=== PATIENT | female | born 1970 | race Caucasian/White ===

== ENCOUNTER 2017-06-20 16:48 | Inpatient (IN) | payer MEDICARE, MEDICAID, SELFPAY ==
[~2017-06-20] VITALS: Ht 149.9 cm; Wt 158.3 kg
[~2017-06-20 16:48] MED LIST: ACETAMINOPHEN325 M1 PO; AMBIEN 10 MG TA10 MG PO; ATENOLOL 25 MG25 M1 PO; ATENOLOL 50 MG50 M1 PO; ATIVAN0.5 MG PO; ATIVAN1 MG PO; AUGMENTIN 875875 M1 PO; AUGMENTIN 875875 MG PO; BACTROBAN22 GM TP; CARBAMAZEPINE200 M5 PO; CARBAMAZEPINE400 M1 PO; CLINDAMYCIN PO; CLONAZEPAM 0.50.5 M1 PO; DEPAKOTE ER500 MG PO; DESYREL300 MG PO; DOXYCYCLINE 10100 M1 PO; DOXYCYCLINE 10100 MG PO; EPITOL200 MG PO; FUROSEMIDE 20 M20 M1 PO; HYDROCODON-ACE1 EAC7 PO; HYDROCODONE-AP1 EAC6 PO; KEFLEX500 MG PO; LAMISIL15 GM; LASIX 20 MG TAB20 MG PO; LORTAB 5-500 T1 EAC1 PO; MICONAZOLE NITR45 G1 TP; MINOCIN100 MG PO; MOBIC7.5 M1 PO; MOTION RELIEF25 MG PO; NEURONTIN 300300 M1 PO; NORCO 5-325 TA1 EACH PO; NYSTATIN15 GM TOP; OCEAN; PREDNISONE 10 M10 M1 PO; PROTONIX40 M2 PO; RESPERAL IM; RISPERDAL12.5 MG/2 IM; ROBITUSSIN15 MG/5 M1 PO; SEROQUEL200 MG PO; SERTRALINE HCL50 MG PO; SIMVASTATIN40 MG PO; TRAMADOL 50 MG50 MG PO; TRANSPORT CHAI1 EACH MC; TRAZODONE 150150 M1 PO; TRIAMCINOLONE; TRIAMCINOLONE A80 G2 TOP; VISTARIL 25 MG25 M1 PO; ZOFRAN 4 MG ORAL4 MG PO; ZOLOFT25 MG PO; ZOLOFT50 MG PO; [UNRECOGNIZED DRUG - OTHER] PO
[2017-06-20 16:49] VITALS: BP 131/91
[2017-06-20 17:27] LABS: HEMATOCRIT 39.8 % (37.0-47.0); HEMOGLOBIN 12.9 gm/dL (12.0-15.0); MCH 29.8 pg (26.0-34.0); MCHC 32.3 g/dL (28.0-37.0); MCV 92.2 fL (80.0-100.0); MPV 7.4 fl. (7.2-11.1); NUCLEATED RBCS 0 /100WBC; PLATELET COUNT* 162 thou/uL (150-400); RBC 4.31 mil/uL (4.20-5.00); RDW-CV 16.2 % (10.5-14.5); WBC 6.9 thou/uL (4.0-11.0)
[2017-06-20 17:32] LABS: ANION GAP 4 mmol/L (7-16); BUN 13 mg/dL (7-18); CALCIUM 8.6 mg/dL (8.5-10.1); CHLORIDE 98 mmol/L (98-107); CO2 33 mmol/L (21-32); CREATININE 0.8 mg/dL (0.6-1.3); GLUCOSE 121 mg/dL (70-99); POTASSIUM 4.1 mmol/L (3.5-5.1); SODIUM 135 mmol/L (136-145)
[2017-06-20 17:43] LABS: ALBUMIN 3.2 g/dL (3.4-5.0); ALKALINE PHOSPHATASE 61 U/L (46-116); NT-PRO BRAIN NAT PEPTIDE 658 pg/mL (<300); SGOT 12 U/L (15-37); SGPT 12 U/L (30-65); TOTAL BILIRUBIN 0.3 mg/dL (<0.1-1.0); TROPONIN-I LEVEL <0.06 ng/mL (<0.06)
[2017-06-20 17:48] LABS: INFLUENZA A ANTIGEN None Detected (None Detect); INFLUENZA B ANTIGEN None Detected (None Detect)
[2017-06-20 17:56] LABS: ABSOLUTE LYMPHOCYTES 0.3 thou/uL (0.8-5.3); ABSOLUTE MONOCYTES 0.6 thou/uL (0.0-1.2); ABSOLUTE NEUTROPHILS 5.9 thou/uL (1.6-8.1); PLATELET ESTIMATE ADEQUATE
[2017-06-20] MEDS ORDERED: FLONASE 0.05%50 MCG NASAL (18:16)
[2017-06-20] MEDS ORDERED: KLOR-CON 1010 MEQ PO (18:17)
[2017-06-20] MEDS ORDERED: DIFLUCAN150 MG PO (18:18)
[2017-06-20] MEDS ORDERED: AMBIEN 5 MG TABL5 M1 PO (18:19)
[2017-06-20] MEDS ORDERED: KETOCONAZOLE15 GM TOP (18:20)
[2017-06-20] MEDS ORDERED: MAGOX 400400 MG PO (18:21)
[2017-06-20] MEDS ORDERED: BENADRYL25 MG PO (18:22)
[2017-06-20] MEDS ORDERED: CLONAZEPAM 0.50.5 M1 PO (18:23)
[2017-06-20 19:41] VITALS: BP 110/55
[2017-06-20 21:00] VITALS: BP 112/62
[2017-06-21 04:51] LABS: ABSOLUTE LYMPHOCYTES 0.4 thou/uL (0.8-5.3); ABSOLUTE MONOCYTES 0.8 thou/uL (0.0-1.2); ABSOLUTE NEUTROPHILS 4.6 thou/uL (1.6-8.1); BASOPHILS 0.3 %; HEMATOCRIT 38.7 % (37.0-47.0); HEMOGLOBIN 12.7 gm/dL (12.0-15.0); LYMPHOCYTES 7.4 %; MCH 30.3 pg (26.0-34.0); MCHC 32.8 g/dL (28.0-37.0); MCV 92.1 fL (80.0-100.0); MONOCYTES 13.5 %; MPV 7.5 fl. (7.2-11.1); NUCLEATED RBCS 0 /100WBC; PLATELET COUNT* 156 thou/uL (150-400); POLYS 78.8 %; RDW-CV 16.1 % (10.5-14.5); WBC 5.8 thou/uL (4.0-11.0)
[2017-06-21 04:58] LABS: CALCIUM 8.3 mg/dL (8.5-10.1); CREATININE 0.8 mg/dL (0.6-1.3); POTASSIUM 4.7 mmol/L (3.5-5.1)
--- NOTE | 2017-06-21 10:28 | EKG ---
[place] [address] ELECTROCARDIOGRAM REPORT Name: PAUL YOO Room: [address] ADM IN M.R.#: [id number] Admission: 06/20/17 Attend Phys: Lisa Nicolas Discharge: Date of : 72 Report #: [id number] THIS REPORT FOR: //name// [facility] ED Test Date: 2017-06-20 Test Time: 17:10:03 Pat Name: PAUL YOO Department: Room: [facility] Gender: F Chick Sexer: Elizabeth BANGURA : 1970 Requested By: Rob Polanco Order Number: [id number] MD: Rachid Harper Measurements Intervals Lemitar Rate: 93 P: 45 OR: 209 QRS: 63 QRSD: 109 T: 31 QT: 334 QTc: 416 Interpretive Statements Sinus rhythm Prolonged OR interval Biatrial enlargement Low voltage, precordial leads Borderline T wave abnormalities Compared to ECG 06/27/2014 23:12:32 ST (T wave) deviation now present Sinus tachycardia no longer present Electronically Signed On 06-21-2017 10:28:07 PLANNING COORDINATOR by Rachid Harper [email or web address] <ELECTRONICALLY SIGNED> By: Rachid Harper MD, [facility] 06/21/17 1028 1710 1710 Rachid Harper MD, [facility] /EPI
[2017-06-21 15:45] VITALS: BP 130/61
[2017-06-22 04:42] LABS: ABSOLUTE LYMPHOCYTES 0.9 thou/uL (0.8-5.3); ABSOLUTE MONOCYTES 1.1 thou/uL (0.0-1.2); ABSOLUTE NEUTROPHILS 5.4 thou/uL (1.6-8.1); BASOPHILS 0.4 %; EOSINOPHILS 0.2 %; HEMATOCRIT 41.4 % (37.0-47.0); HEMOGLOBIN 13.4 gm/dL (12.0-15.0); LYMPHOCYTES 12.1 %; MCHC 32.5 g/dL (28.0-37.0); MCV 92.4 fL (80.0-100.0); MONOCYTES 14.2 %; MPV 8.3 fl. (7.2-11.1); NUCLEATED RBCS 0 /100WBC; POLYS 73.1 %; RBC 4.48 mil/uL (4.20-5.00); RDW-CV 16.7 % (10.5-14.5); WBC 7.4 thou/uL (4.0-11.0)
[2017-06-22 04:51] LABS: CALCIUM 8.4 mg/dL (8.5-10.1); CREATININE 0.8 mg/dL (0.6-1.3); POTASSIUM 4.6 mmol/L (3.5-5.1)
[2017-06-22 06:30] LABS: PLATELET ESTIMATE DECREASED
[2017-06-22 06:31] LABS: ANISOCYTOSIS 1+; LARGE PLATELETS RARE; PLATELET COUNT* 137 thou/uL (150-400); POIKILOCYTOSIS 1+
[2017-06-22 16:00] VITALS: BP 137/67
[2017-06-22 19:45] VITALS: BP 106/52
[2017-06-23 08:59] LABS: BE 7.4 mmol/L (-2 to +3); HCO3 37.6 mmol/L (22.0-26.0); PO2 73.7 mmHg (75.0-100.0)
[2017-06-23 09:01] LABS: PCO2 86.8 mmHg (35.0-45.0); pH 7.255 (7.340-7.450)
[2017-06-23 10:54] LABS: BE 7.2 mmol/L (-2 to +3); HCO3 38.5 mmol/L (22.0-26.0); PO2 72.8 mmHg (75.0-100.0)
[2017-06-23 10:55] LABS: pH 7.212 (7.340-7.450)
[2017-06-23 11:16] VITALS: BP 110/51
[2017-06-23 13:14] LABS: BE 8.1 mmol/L (-2 to +3); HCO3 37.8 mmol/L (22.0-26.0); PO2 84.3 mmHg (75.0-100.0)
[2017-06-23 13:22] LABS: pH 7.287 (7.340-7.450)
[2017-06-23 13:23] LABS: PCO2 80.9 mmHg (35.0-45.0)
[2017-06-23 14:05] VITALS: BP 109/59
[2017-06-23 16:00] VITALS: BP 119/59
[2017-06-23 17:55] LABS: BE 5.8 mmol/L (-2 to +3); HCO3 34.9 mmol/L (22.0-26.0); PO2 81.9 mmHg (75.0-100.0)
[2017-06-23 17:56] LABS: PCO2 75.2 mmHg (35.0-45.0); pH 7.285 (7.340-7.450)
[2017-06-23 20:00] VITALS: BP 105/54
[2017-06-23 22:00] VITALS: BP 101/53
[2017-06-24] VITALS (13 sets, daily range): BP systolic 111–135; BP diastolic 58–78
[2017-06-24 06:06] LABS: BE 8.5 mmol/L (-2 to +3); HCO3 37.8 mmol/L (22.0-26.0); PO2 92.1 mmHg (75.0-100.0); pH 7.304 (7.340-7.450)
[2017-06-24 06:10] LABS: PCO2 77.9 mmHg (35.0-45.0)
[2017-06-25] VITALS (8 sets, daily range): BP systolic 113–135; BP diastolic 54–99
[2017-06-25 03:48] LABS: BE 14.3 mmol/L (-2 to +3); PO2 86.4 mmHg (75.0-100.0)
[2017-06-25 03:50] LABS: HCO3 43.8 mmol/L (22.0-26.0); PCO2 81.1 mmHg (35.0-45.0)
[2017-06-25 05:26] LABS: HEMATOCRIT 37.2 % (37.0-47.0); HEMOGLOBIN 12.2 gm/dL (12.0-15.0); MCH 30.1 pg (26.0-34.0); MCHC 32.8 g/dL (28.0-37.0); MCV 91.7 fL (80.0-100.0); MPV 7.5 fl. (7.2-11.1); RBC 4.05 mil/uL (4.20-5.00); RDW-CV 15.7 % (10.5-14.5); WBC 5.4 thou/uL (4.0-11.0)
[2017-06-25 05:46] LABS: ALBUMIN 2.8 g/dL (3.4-5.0); ALKALINE PHOSPHATASE 42 U/L (46-116); ANION GAP < 0 mmol/L (7-16); BUN 16 mg/dL (7-18); CALCIUM 7.6 mg/dL (8.5-10.1); CHLORIDE 100 mmol/L (98-107); CO2 41 mmol/L (21-32); CREATININE 0.7 mg/dL (0.6-1.3); GLUCOSE 117 mg/dL (70-99); MAGNESIUM 1.6 mg/dL (1.8-2.4); POTASSIUM 3.8 mmol/L (3.5-5.1); SGOT 15 U/L (15-37); SGPT 12 U/L (30-65); SODIUM 140 mmol/L (136-145); TOTAL BILIRUBIN 0.3 mg/dL (<0.1-1.0); TOTAL PROTEIN 7.2 g/dL (6.4-8.2)
--- NOTE | 2017-06-25 09:13 | CON ---
[address] [address] CONSULTATION Name: PAUL YOO Room: [address] IN M.R.#: [id number] Admission: 06/20/17 Attend Phys: Shira Casey MD Discharge: Date of : 72 Report #: [id number] THIS REPORT FOR: //name// CC: Rachid Casey REASON FOR THE CONSULT: Acute hypercapnic respiratory failure, worsening ABGs. HISTORY OF PRESENT ILLNESS: The patient is a 46-year-old female patient, morbidly obese, admitted to the hospital on 06/20/2017 with the chief complaint of shortness of breath of 2 days' duration. The patient reported that she had cough and feeling congested in her chest with sore throat and rhinorrhea. She told me she does not have lung disease. She never had a CPAP or BiPAP in the past, although she said she had a sleep study in the past and she was told she does not have it. She does not carry a lung disease or any oxygen or inhalers at home. As an outpatient, she was given Z-Remy couple of days prior to hospitalization that they did not feel any improvement. She had fever and feeling congested. During this hospitalization, she had multiple sets of ABGs, showed hypercapnic respiratory failure, although patient was trialed on BiPAP and her ABGs got worse and she was transferred to the ICU. When I saw the patient, she was on 50% Ventimask. She is awake and alert. Her pH is 7.3 and pCO2 was 77. This was done on the Ventimask. She denied any compliance. She denied any lower extremity edema, although she had significant lymphedema in the lower extremities. ALLERGIES: SULFA, MORPHINE AND CODEINE. PAST MEDICAL AND SURGICAL HISTORY: Includes seizure disorder, hypertension, hyperlipidemia, bipolar disorder, panic attacks and anxiety. She had a history of tonsillectomy, eye surgery, lymphedema, history of DVT, cellulitis and clot in the arm from a PICC line 1 year ago. She has history of bladder infection and incision and drainage of the right foot. SOCIAL HISTORY: Does not smoke. Does not drink alcohol. Does not abuse drugs. HOME MEDICATIONS: She is on simvastatin, hydrocodone, sertraline, Lasix, fluticasone and atenolol. REVIEW OF SYSTEMS: She denied any fever, chills, headache or nasal discharge at this point. She denied nausea or vomiting, dysuria, frequency or urgency. She is not sure if she had lower extremity edema. She had no focal weakness. The rest of the review of systems was negative. PHYSICAL EXAMINATION: VITAL SIGNS: On examination, she is on 50% Ventimask with saturation more than [facility] [address] [place] [address] CONSULTATION Name: PAUL YOO Room: [address] IN .R.#: [id number] Admission: 06/20/17 Attend Phys: Shira Casey MD Discharge: Date of : 72 Report #: [id number] 90%. Her blood pressure is 118/70, pulse rate of 71 and breathing comfortably at 20 times a minute. GENERAL: Morbidly obese lady, awake, alert and oriented, not in distress. Speaks in full sentences. HEENT: Head, normocephalic and atraumatic. Pupils equal and reactive to light. Oral cavity: Moist mucous membranes with Mallampati of 2-3. No ulcers. NECK: Supple. No palpable lymph node. No palpable thyroid. Trachea is central. CHEST: Diminished air movement bilaterally. Prolonged expiratory phase. I did not appreciate wheezes or crackles. HEART: S1 and S2. No murmurs. No gallop. ABDOMEN: Obese, soft, lax, benign, nontender. No masses felt. EXTREMITIES: Lower extremity, chronic lymphedema bilaterally. Some rash noted down her legs. Possibly some edema with lymphedema noted. NEUROLOGIC: Awake, alert and oriented. Moving 4 extremities spontaneously. Speech normal. LYMPHATICS: No palpable lymph node. SKIN: As mentioned, she has rash on her legs. LABORATORY DATA: ABGs: She had multiple ABGs during hospitalization reviewed. The last ABG 7./ on 50% FiO2. Her creatinine is 0.8. BNP slightly elevated. Potassium 4.6 today. Prealbumin 17.8. Her white blood cell count today 7.4, hemoglobin 13.4 and platelet 137. Previous CBC also reviewed. Her respiratory virus panel for A and B negative and the rapid test. She had also multiple chest x-rays that showed cardiomegaly with signs of vascular congestion bilaterally, possible lower lobe infiltrate. CURRENT MEDICATIONS: She is on steroids, Lovenox. She is on Levaquin. She is on p.o. Lasix. IMPRESSION: 1. Acute respiratory failure, hypoxic and hypercapnic, most likely chronic. 2. Likely obesity hypoventilation syndrome. 3. Pulmonary vascular congestion. 4. Pulmonary infiltrate. I agree with antibiotics. I would recommend more diuresis. I will do Doppler ultrasound of the lower extremities. Continue the BiPAP as tolerated. Potentially, she would need noninvasive ventilation at home with the combination of obesity hypoventilation syndrome, obstructive sleep apnea and respiratory failure. I did recommend for her to have a sleep study as an outpatient. Continue to monitor fluid status, keep her negative fluid balance. Can come off the BiPAP for diet. Wean oxygen as tolerated. We will follow along with you. [address] [address] CONSULTATION Name: PAUL YOO Room: [address] IN .R.#: [id number] Admission: 06/20/17 Attend Phys: Shira Casey MD Discharge: Date of : 72 Report #: [id number] Thank you for the consult. <ELECTRONICALLY SIGNED> By: Tye Martinez MD 06/25/17 0913 0921 [id number] Martinez MD /nt
[2017-06-25 17:37] LABS: URINE BILIRUBIN NEGATIVE (Negative); URINE BLOOD TRACE (Negative); URINE CLARITY CLEAR; URINE COLOR YELLOW; URINE GLUCOSE-RANDOM NEGATIVE (Negative); URINE KETONES NEGATIVE (Negative); URINE LEUKOCYTES-REFLEX NEGATIVE (Negative); URINE NITRITE-REFLEX NEGATIVE (Negative); URINE PROTEIN NEGATIVE (Negative); URINE UROBILINOGEN 0.2 E.U./dl (0.2-1.0)
[2017-06-26] VITALS (7 sets, daily range): BP systolic 113–150; BP diastolic 67–86
[2017-06-26 05:25] LABS: HEMATOCRIT 40.2 % (37.0-47.0); HEMOGLOBIN 13.4 gm/dL (12.0-15.0); MCH 30.3 pg (26.0-34.0); MCHC 33.3 g/dL (28.0-37.0); MPV 7.6 fl. (7.2-11.1); RBC 4.42 mil/uL (4.20-5.00); RDW-CV 15.5 % (10.5-14.5); WBC 6.7 thou/uL (4.0-11.0)
[2017-06-26 05:27] LABS: CALCIUM 8.3 mg/dL (8.5-10.1); CREATININE 0.7 mg/dL (0.6-1.3); POTASSIUM 3.8 mmol/L (3.5-5.1)
[2017-06-27 04:00] VITALS: BP 131/77
[2017-06-27 04:44] LABS: BE 11.1 mmol/L (-2 to +3); PO2 100.9 mmHg (75.0-100.0)
[2017-06-27 04:47] LABS: HCO3 41.5 mmol/L (22.0-26.0); PCO2 86.6 mmHg (35.0-45.0); pH 7.298 (7.340-7.450)
[2017-06-27 05:09] LABS: HEMATOCRIT 41.4 % (37.0-47.0); HEMOGLOBIN 13.3 gm/dL (12.0-15.0); MCH 29.9 pg (26.0-34.0); MCHC 32.1 g/dL (28.0-37.0); MCV 93.1 fL (80.0-100.0); MPV 7.8 fl. (7.2-11.1); RBC 4.44 mil/uL (4.20-5.00); RDW-CV 15.7 % (10.5-14.5); WBC 8.2 thou/uL (4.0-11.0)
[2017-06-27 05:27] LABS: ALBUMIN 2.8 g/dL (3.4-5.0); CALCIUM 8.5 mg/dL (8.5-10.1); CREATININE 0.6 mg/dL (0.6-1.3); MAGNESIUM 2.1 mg/dL (1.8-2.4); POTASSIUM 4.3 mmol/L (3.5-5.1); TOTAL BILIRUBIN 0.3 mg/dL (<0.1-1.0); TOTAL PROTEIN 7.7 g/dL (6.4-8.2)
[2017-06-27 08:30] VITALS: BP 125/66
[2017-06-27 11:57] VITALS: BP 118/64
[2017-06-27 15:57] VITALS: BP 119/67
[2017-06-27 18:16] LABS: BE 7.5 mmol/L (-2 to +3); pH 7.376 (7.340-7.450)
[2017-06-27 18:19] LABS: PCO2 61.1 mmHg (35.0-45.0)
[2017-06-27 19:40] VITALS: BP 129/70
[2017-06-28] VITALS: BP 129/71
[2017-06-28 04:00] VITALS: BP 115/62
[2017-06-28 05:34] LABS: HEMATOCRIT 39.6 % (37.0-47.0); HEMOGLOBIN 12.8 gm/dL (12.0-15.0); MCH 29.9 pg (26.0-34.0); MCHC 32.5 g/dL (28.0-37.0); MPV 7.5 fl. (7.2-11.1); RBC 4.3 mil/uL (4.20-5.00); RDW-CV 15.8 % (10.5-14.5); WBC 10.2 thou/uL (4.0-11.0)
[2017-06-28 05:49] LABS: CALCIUM 8.5 mg/dL (8.5-10.1); CREATININE 0.6 mg/dL (0.6-1.3); POTASSIUM 3.9 mmol/L (3.5-5.1)
[2017-06-28 05:53] LABS: BE 11.3 mmol/L (-2 to +3); HCO3 39.3 mmol/L (22.0-26.0); pH 7.385 (7.340-7.450)
[2017-06-28 05:57] LABS: PCO2 67.2 mmHg (35.0-45.0); PO2 53.4 mmHg (75.0-100.0)
[2017-06-28 08:00] VITALS: BP 144/80
[2017-06-28 16:00] VITALS: BP 148/77
[2017-06-28 20:00] VITALS: BP 128/89
[2017-06-29] VITALS: BP 135/77
[2017-06-29 04:12] VITALS: BP 127/71
[2017-06-29] MEDS ORDERED: PREDNISONE 10 M10 MG PO (09:12)
[2017-06-29] MEDS ORDERED: LEVAQUIN 750 M750 MG PO (09:12)
[2017-06-29] MEDS ORDERED: DUONEB 2.5-0.5 M3 ML INH (09:12)
[2017-06-29] MEDS ORDERED: NEBULIZER MISCELL (09:12)
[2017-06-29 12:24] VITALS: BP 103/57
[2017-06-29 16:00] VITALS: BP 144/77
[2017-06-29 20:00] VITALS: BP 138/85
[2017-06-30 00:18] VITALS: BP 110/56
[2017-06-30 03:59] VITALS: BP 119/64
[2017-06-30 09:32] VITALS: BP 116/53
[2017-06-30 12:08] VITALS: BP 119/58
[2017-06-30 15:30] VITALS: BP 113/61
[2017-06-30 20:00] VITALS: BP 111/57
[2017-07-01 07:15] VITALS: BP 103/46
--- NOTE | 2017-07-01 13:12 | 2DMMODE ---
[place] [address] 2 D/M-MODE ECHOCARDIOGRAM Name: PAUL YOO Room: [address] IN .R.#: [id number] Admission: 06/20/17 Attend Phys: Shira Casey, Discharge: Date of : 72 Date of Service: 07/01/17 1312 Report #: [id number] THIS REPORT FOR: //name// APPROVED REPORT Study performed: 07/01/2017 10:36:23 EXAM: Comprehensive 2D, Doppler, and color-flow Echocardiogram Patient Location: Bedside BSA: 2.34 HR: 83 bpm BP: 111/57 mmHg Other Information Study Quality: Adequate Technically limited study due to body habitus, inability to position patient. Indications Congestive Heart Failure 2D Dimensions LVEF(%): 55.95 (>50%) IVSd: 11.67 (7-11mm) LVOT Diam: 23.98 (18-24mm) LVDd: 47.39 mm PWd: 11.70 (7-11mm) Ascending Ao: 28.49 (22-36mm) LVDs: 33.56 (25-40mm) Aortic Root: 31.10 mm Shirley's LVEF: 55.95 % Volumes Left Atrial Volume (Systole) LA ESV Index: 23.40 mL/m2 Aortic Valve AoV Peak Oneil.: 2.11 m/s AO Peak Gr.: 17.81 mmHg LVOT Max P.98 mmHg AO Mean Gr.: 8.37 mmHg LVOT Mean P.03 mmHg LVOT Max V: 1.22 m/s AO V2 VTI: 31.79 cm LVOT Mean V: 0.81 m/s DAQUAN (VTI): 2.90 cm2 LVOT V1 VTI: 20.38 cm Mitral Valve E/A Ratio: 0.87 [place] [address] 2 D/M-MODE ECHOCARDIOGRAM Name: PAUL YOO Room: [address] IN .R.#: [id number] Admission: 06/20/17 Attend Phys: Shira Casey, Discharge: Date of : 72 Date of Service: 07/01/17 1312 Report #: [id number] MV Decel. Time: 163.68 ms MV E Max Oneil.: 0.37 m/s MV PHT: 47.47 ms MVA (PHT): 4.63 cm2 TDI E/Lateral E': 6.17 E/Medial E': 4.11 Medial E' Oneil.: 0.09 m/s Lateral E' Oneil.: 0.06 m/s Pulmonary Valve PV Peak Oneil.: 1.06 m/s PV Peak Gr.: 4.47 mmHg Tricuspid Valve RAP Estimate: 5.00 mmHg TR Peak Gr.: 41.65 mmHg RVSP: 46.65 mmHg PA Pressure: 46.65 mmHg Left Ventricle The left ventricle is normal size. There is normal LV segmental wall motion. Mild concentric left ventricular hypertrophy. Left ventricular systolic function is normal. The left ventricular ejection fraction is within the normal range. LVEF is 60-65%. Right Ventricle Right ventricle is mildly dilated. Right ventricle is mildly hypokinetic. Atria The left atrium size is normal. Right atrium is mildly dilated. Aortic Valve The aortic valve is normal in structure. No aortic regurgitation is present. There is no aortic valvular stenosis. Mitral Valve The mitral valve is normal in structure. Trace mitral regurgitation. No evidence of mitral valve stenosis. Tricuspid Valve The tricuspid valve is normal in structure. Trace tricuspid regurgitation. estimated pa pressure 45 mm Hg Pulmonic Valve Pulmonic valve is not well visualized. There is no [place] [address] 2 D/M-MODE ECHOCARDIOGRAM Name: PAUL YOO Room: [address] IN M.R.#: [id number] Admission: 06/20/17 Attend Phys: Shira Casey, Discharge: Date of : 72 Date of Service: 07/01/17 1312 Report #: [id number] regurgitation. Great Vessels The aortic root is normal in size. IVC is not well visualized. Pericardium Small pericardial effusion <Conclusion> Mild concentric left ventricular hypertrophy. LVEF is 60-65%. Right ventricle is mildly dilated. Right atrium is mildly dilated. Trace tricuspid regurgitation. estimated pa pressure 45 mm Hg <ELECTRONICALLY SIGNED> By: Rachid Harper MD, FACC 07/01/17 1312 11 131 Rachid Harper MD, FACC /INF
[2017-07-01 16:00] VITALS: BP 127/80
[2017-07-01 21:20] VITALS: BP 126/68
[2017-07-02 00:16] VITALS: BP 102/52
[2017-07-02 08:00] VITALS: BP 106/81
[2017-07-02 08:49] VITALS: BP 106/81
== END 2017-07-02 15:07 | disposition home health service (06) | DRG 291 ==
LOC: M.ERS 16:48 → M.TBA-ER 17:51 → M.ICU 17:51 → M.3W 17:51 → M.ICU 06-23 14:05 → M.2W 06-25 10:58 → M.ORTHSURG 06-30 19:13
PROVIDERS: Emergency Medicine; Emergency Medicine Emergency Medical Services; Internal Medicine; Internal Medicine Pulmonary Disease; ADMIT Internal Medicine
PROC: 5A09357 Assistance with Respiratory Ventilation, Less than 24 Consecutive Hours, Continuous Positive Airway Pressure (ICD-10-PCS; principal; 2017-06-27)
PROC: 5A09357 Assistance with Respiratory Ventilation, Less than 24 Consecutive Hours, Continuous Positive Airway Pressure (ICD-10-PCS; 2017-06-28)
PROC: 5A09357 Assistance with Respiratory Ventilation, Less than 24 Consecutive Hours, Continuous Positive Airway Pressure (ICD-10-PCS; 2017-06-29)
PROC: 5A09357 Assistance with Respiratory Ventilation, Less than 24 Consecutive Hours, Continuous Positive Airway Pressure (ICD-10-PCS; 2017-07-01)
DX: I11.0 Hypertensive heart disease with heart failure (principal); J18.9 Pneumonia, unspecified organism; J96.21 Acute and chronic respiratory failure with hypoxia; J96.22 Acute and chronic respiratory failure with hypercapnia; E66.2 Morbid (severe) obesity with alveolar hypoventilation; Z68.45 Body mass index [BMI] 70 or greater, adult; R65.10 Systemic inflammatory response syndrome (SIRS) of non-infectious origin without acute organ dysfunction; I50.33 Acute on chronic diastolic (congestive) heart failure; G40.909 Epilepsy, unspecified, not intractable, without status epilepticus; E78.00 Pure hypercholesterolemia, unspecified; F31.9 Bipolar disorder, unspecified; F41.0 Panic disorder [episodic paroxysmal anxiety]; E78.5 Hyperlipidemia, unspecified; I89.0 Lymphedema, not elsewhere classified; I87.8 Other specified disorders of veins; Z86.718 Personal history of other venous thrombosis and embolism; Z79.899 Other long term (current) drug therapy; Z88.6 Allergy status to analgesic agent; Z88.2 Allergy status to sulfonamides